=== PATIENT | female | born 1945 | race Caucasian/White ===

== ENCOUNTER → 2018-03-18 10:53 | Outpatient (CLI) | payer MEDICARE, OTHER, SELFPAY ==
--- NOTE | 2018-03-18 | DI.MG.S_ITS ---
BILATERAL DIGITAL SCREENING MAMMOGRAM 3D/2D WITH CAD: 03/18/2018 CLINICAL: Routine screening. Comparison is made to exams dated: 02/28/2017 mammogram and 02/28/2016 mammogram - [facility]. There are scattered fibroglandular elements in both breasts. Current study was also evaluated with a Computer Aided Detection (CAD) system. There is an asymmetry in the left breast posterior depth medial region seen on the craniocaudal view only. No other significant masses, calcifications, or other findings are seen in either breast. IMPRESSION: INCOMPLETE: NEEDS ADDITIONAL IMAGING EVALUATION The asymmetry in the left breast is indeterminate. Additional views with possible ultrasound are recommended. This exam was interpreted at Station ID: [id number]. NOTE: For mammograms, a report in lay terms will be sent to the patient. Approximately 15% of breast malignancies will not be visualized mammographically. In the management of a palpable breast mass, a negative mammogram must not discourage biopsy of a clinically suspicious lesion. Electronically Signed By: Patricio aguilera/jen:03/20/2018 18:15:48 letter sent: Additional Imaging Needed ACR BI-RADS Category 0: Incomplete 3340F
== END ==
PROVIDERS: PCP Registered Nurse Women's Health Care, Ambulatory; Visit Provider Nurse Practitioner Family
DX: Z12.31 Encounter for screening mammogram for malignant neoplasm of breast (principal); R92.8 Other abnormal and inconclusive findings on diagnostic imaging of breast
CPT/HCPCS: 77063; 77067

== ENCOUNTER → 2018-03-28 09:51 | Outpatient (CLI) | payer MEDICARE, OTHER, SELFPAY ==
--- NOTE | 2018-03-28 | DI.MG.S_ITS ---
UNILATERAL LEFT DIGITAL DIAGNOSTIC MAMMOGRAM 3D/2D WITH ADDITIONAL VIEWS: 03/28/2018 CLINICAL: Additional evaluation requested from prior study. Comparison is made to exams dated: 03/18/2018 mammogram - [facility], 02/28/2017 mammogram, and 02/28/2016 mammogram - [facility]. There are scattered fibroglandular elements in the left breast. There is an asymmetry in the left breast posterior depth medial region seen on the craniocaudal view only. This is not seen in additional views. No other significant masses or calcifications are seen in the breast. IMPRESSION: INCOMPLETE: NEEDS ADDITIONAL IMAGING EVALUATION The asymmetry in the left breast seen only on screening view is indeterminate. An ultrasound is recommended. This exam was interpreted at Station ID: [id number]. NOTE: For mammograms, a report in lay terms will be sent to the patient. Approximately 15% of breast malignancies will not be visualized mammographically. In the management of a palpable breast mass, a negative mammogram must not discourage biopsy of a clinically suspicious lesion. Electronically Signed By: Archana Milner M.D. lk/:03/28/2018 10:41:57 letter sent: Additional Imaging Needed ACR BI-RADS Category 0: Incomplete 3340F
--- NOTE | 2018-03-28 | DI.US.S_ITS ---
ULTRASOUND OF LEFT BREAST: 03/28/2018 CLINICAL: Patient returns today to evaluate a density in the left breast. Comparison is made to exams dated: 03/28/2018 mammogram, 03/18/2018 mammogram - [facility], 02/28/2017 mammogram, and 02/28/2016 mammogram - [facility]. Ultrasound of the left breast was performed on the area of interest. Larson scale images of the real-time examination were reviewed. IMPRESSION: NEGATIVE There is no sonographic evidence of malignancy. There is no diagnostic mammographic or sonographic abnormality seen in the left breast to correspond with the mammography finding on the screening mammogram dated 12/17/17 in the inner aspect of the breast. This most likely represents a sternalis muscle, and is benign. A 1 year screening mammogram is recommended. This exam was interpreted at Station ID: [id number]. Electronically Signed By: Archana Milner M.D. lk/:03/28/2018 10:45:01 letter sent: Normal Exam Ultrasound BI-RADS: 1 Negative
== END ==
PROVIDERS: PCP Registered Nurse Women's Health Care, Ambulatory; Visit Provider Nurse Practitioner Family
DX: R92.8 Other abnormal and inconclusive findings on diagnostic imaging of breast (principal)
CPT/HCPCS: 76642; 77065; G0279

== ENCOUNTER → 2020-04-02 09:04 | Outpatient (CLI) | payer MEDICARE, OTHER, SELFPAY ==
--- NOTE | 2020-04-02 | DI.MG.S_ITS ---
BILATERAL DIGITAL SCREENING MAMMOGRAM 3D/2D WITH CAD: 04/02/2020 CLINICAL: Routine screening. Comparison is made to exams dated: 03/18/2018 mammogram, 03/28/2018 mammogram - [facility], 02/28/2017 mammogram, and 02/28/2016 mammogram - [facility]. There are scattered fibroglandular elements in both breasts. Current study was also evaluated with a Computer Aided Detection (CAD) system. No significant masses, calcifications, or other findings are seen in either breast. There has been no significant interval change. IMPRESSION: NEGATIVE There is no mammographic evidence of malignancy. A 1 year screening mammogram is recommended. This exam was interpreted at Station ID: [id number]. NOTE: For mammograms, a report in lay terms will be sent to the patient. Approximately 15% of breast malignancies will not be visualized mammographically. In the management of a palpable breast mass, a negative mammogram must not discourage biopsy of a clinically suspicious lesion. Electronically Signed By: Cabrera campbell/jen:04/04/2020 07:46:59 letter sent: Normal Exam ACR BI-RADS Category 1: Negative [id number]
== END ==
PROVIDERS: PCP Student in an Organized Health Care Education/Training Program; Referring Provider Student in an Organized Health Care Education/Training Program; Visit Provider Student in an Organized Health Care Education/Training Program
DX: Z12.31 Encounter for screening mammogram for malignant neoplasm of breast (principal)
CPT/HCPCS: 77063; 77067

== ENCOUNTER → 2021-03-21 11:40 | Outpatient (CLI) | payer MEDICARE, OTHER, SELFPAY ==
--- NOTE | 2021-03-21 | DI.RAD.S_ITS ---
PROCEDURE: XR KNEE RT 3V INDICATIONS: pain in right knee TECHNIQUE: 3 views of the knee were acquired. COMPARISON: None. FINDINGS: Bones: No fractures or dislocations. No suspicious bony lesions. Scattered degenerative subchondral sclerosis and spurring. There is at least mild medial joint space narrowing. Soft tissues: Chondrocalcinosis. Trace joint effusion. IMPRESSION: Mild osteoarthritis. Trace joint effusion. Chondrocalcinosis If the patient's pain or other symptoms persist, consider further evaluation with MRI Dictated by: Abhilash Torres M.D. on 03/21/2021 at 13:29 Approved by: Abhilash Torres M.D. on 03/21/2021 at 13:30
== END ==
PROVIDERS: PCP Student in an Organized Health Care Education/Training Program; Referring Provider Student in an Organized Health Care Education/Training Program; Visit Provider Student in an Organized Health Care Education/Training Program
DX: M25.561 Pain in right knee (principal); M17.11 Unilateral primary osteoarthritis, right knee; M11.261 Other chondrocalcinosis, right knee
CPT/HCPCS: 73562

== ENCOUNTER → 2022-03-12 13:57 | Outpatient (CLI) | payer MEDICARE, OTHER, SELFPAY ==
--- NOTE | 2022-03-12 | DI.MG.S_ITS ---
BILATERAL DIGITAL SCREENING MAMMOGRAM 3D/2D WITH CAD: 03/12/2022 CLINICAL: Routine screening. Comparison is made to exams dated: 04/02/2020 mammogram, 03/18/2018 mammogram - [facility], and 02/28/2017 mammogram - [facility]. There are scattered fibroglandular elements in both breasts. Current study was also evaluated with a Computer Aided Detection (CAD) system. No significant masses, calcifications, or other findings are seen in either breast. There has been no significant interval change. IMPRESSION: NEGATIVE There is no mammographic evidence of malignancy. A 1 year screening mammogram is recommended. Based on the Tyrer Cuzick model (a risk assessment model) the patient's lifetime risk is 2.3% and her 10 year risk is 0.0%. According to the ACR, ACS, and NCCN guidelines, an annual breast MRI exam along with mammogram is recommended if the patient's lifetime risk is 20% or greater. This exam was interpreted at Station ID: [id number]. NOTE: For mammograms, a report in lay terms will be sent to the patient. Approximately 15% of breast malignancies will not be visualized mammographically. In the management of a palpable breast mass, a negative mammogram must not discourage biopsy of a clinically suspicious lesion. Electronically Signed By: Chan garcia/jen:03/12/2022 14:51:35 letter sent: Normal Exam ACR BI-RADS Category 1: Negative 3341F
== END ==
PROVIDERS: PCP Family Medicine; Referring Provider Family Medicine; Visit Provider Student in an Organized Health Care Education/Training Program
DX: Z12.31 Encounter for screening mammogram for malignant neoplasm of breast (principal)
CPT/HCPCS: 77063; 77067

== ENCOUNTER → 2023-03-26 13:47 | Outpatient (CLI) | payer MEDICARE, OTHER, SELFPAY ==
--- NOTE | 2023-03-26 | DI.MG.S_ITS ---
BILATERAL DIGITAL SCREENING MAMMOGRAM 3D/2D WITH CAD: 03/26/2023 CLINICAL: Routine screening. Comparison is made to exams dated: 03/12/2022 mammogram, 04/02/2020 mammogram, and 03/18/2018 mammogram - [facility]. Both breasts are heterogeneously dense, which may obscure small masses (category c / 51-75% glandular tissue). Current study was also evaluated with a Computer Aided Detection (CAD) system. No significant masses, calcifications, or other findings are seen in either breast. There has been no significant interval change. IMPRESSION: NEGATIVE There is no mammographic evidence of malignancy. A 1 year screening mammogram is recommended. Based on the Tyrer Cuzick model (a risk assessment model) the patient's lifetime risk is 3.1% and her 10 year risk is 0.0%. According to the ACR, ACS, and NCCN guidelines, an annual breast MRI exam along with mammogram is recommended if the patient's lifetime risk is 20% or greater. This exam was interpreted at Station ID: [id number]. NOTE: For mammograms, a report in lay terms will be sent to the patient. Approximately 15% of breast malignancies will not be visualized mammographically. In the management of a palpable breast mass, a negative mammogram must not discourage biopsy of a clinically suspicious lesion. Electronically Signed By: Archana zaman/jen:03/26/2023 15:01:10 letter sent: Normal Exam ACR BI-RADS Category 1: Negative [id number]
== END ==
PROVIDERS: PCP Family Medicine; Referring Provider Registered Nurse; Visit Provider Registered Nurse
DX: Z12.31 Encounter for screening mammogram for malignant neoplasm of breast (principal)
CPT/HCPCS: 77063; 77067

== ENCOUNTER → 2023-06-29 10:02 | Outpatient (CLI) | payer MEDICARE, OTHER, SELFPAY | PROVIDERS: PCP Registered Nurse; Visit Provider Registered Nurse | DX: R30.0 Dysuria (principal) | CPT/HCPCS: 87086 ==

== ENCOUNTER 2023-07-03 17:33 | Emergency (ER) | payer MEDICARE, OTHER, SELFPAY ==
[2023-07-03 17:51] VITALS: BP 222/98; PULSE 86; RESP 18; TEMP 36.7; O2SAT 98; BMI 21.5
--- NOTE | 2023-07-03 18:01 | DI.RAD.S_ITS ---
PROCEDURE: XR CHEST 1V INDICATIONS: chest pain TECHNIQUE: One view of the chest was acquired. COMPARISON: None. FINDINGS: Surgical changes and devices: None. Lungs and pleura: Lungs are clear, yet hyperexpanded. No pleural effusions or pneumothorax. Mediastinum: Mediastinal contours appear normal. Heart size is normal. Bones and chest wall: No suspicious bony lesions. S-shaped scoliotic curvature is seen. Age-appropriate bony degenerative changes are seen. Overlying soft tissues appear unremarkable. IMPRESSION: Hyperexpanded lungs, without an acute cardiopulmonary process identified. S shaped scoliosis noted. Dictated by: Quinn Garner M.D. on 07/03/2023 at 18:09 Approved by: Quinn Garner M.D. on 07/03/2023 at 18:09
[2023-07-03 18:35] VITALS: BP 204/112; PULSE 77; RESP 16; O2SAT 99
[2023-07-03 18:40] LABS: Add Manual Diff / Slide Review NO; Basophils Absolute Auto 100 /uL (0-100); Basophils Percent Auto 0.7 % (0-2); Eosinophils Absolute Auto 100 /uL (0-450); Eosinophils Percent Auto 1.6 % (2-4); Hematocrit 39.3 % (36-46); Hemoglobin 13.5 g/dL (12.0-16.0); Lymphocytes Absolute Auto 1600 /uL (1100-4500); Lymphocytes Percent Auto 20.1 % (25-40); Mean Corpuscular HGB Conc 34.3 % (30-36); Mean Corpuscular Hemoglobin 32.2 PG (26-34); Mean Corpuscular Volume 93.8 fL (80-100); Monocytes Absolute Auto 600 /uL (0-900); Monocytes Percent Auto 7.3 % (3-14); Neutrophils Absolute Auto 5700 /uL (1500-7000); Neutrophils Percent Auto 70.3 % (50-75); Platelet Count 222 X10^3/uL (150-400); Red Blood Cell Count 4.19 X10^6/uL (4.0-5.2); Red Cell Distribution Width 12.7 % (11.6-14.8); White Blood Cell Count 8.1 X10^3/uL (4.5-11.0)
[2023-07-03 18:53] LABS: INR 1.1 (0.9-1.3); Prothrombin Time 12.9 SECONDS (10.1-12.7)
[2023-07-03 18:56] LABS: PTT Partial Thromboplastin Tim 30 SECONDS (26-36)
[2023-07-03 18:59] LABS: Alanine Aminotransferase 16 IU/L (<35); Albumin 4.4 g/dL (3.5-5.0); Albumin Globulin Ratio 1.6 (1.0-2.8); Alkaline Phosphatase 84 U/L (38-126); Aspartate Aminotransferase 42 IU/L (14-36); BUN Creatinine Ratio 18.5 (6-22); Bilirubin Total 0.4 mg/dL (0.2-1.3); Blood Urea Nitrogen 12 mg/dL (7-17); Calcium 9.8 mg/dL (8.4-10.2); Carbon Dioxide 29 mmol/L (22-32); Chloride 101 mmol/L (98-107); Creatine Kinase 141 U/L (30-135); Estimated Glomerular Filt Rate > 60 mL/min (>60); Globulin 2.8 g/dL (1.7-4.1); Glucose 129 mg/dL (80-110); HEMOLYSIS 23 (0-50); Lipase 106 U/L (23-300); Magnesium 2.2 mg/dL (1.6-2.3); Potassium 3.9 mmol/L (3.4-5.1); Sodium 137 mmol/L (137-145); Total Protein 7.2 g/dL (6.3-8.2)
[2023-07-03 19:10] LABS: Troponin I < 0.012 ng/mL (0.01-0.034)
[2023-07-03 19:57] VITALS: BP 173/91; PULSE 92; O2SAT 98
[2023-07-03 20:00] VITALS: BP 203/98; PULSE 88; RESP 18; O2SAT 99
--- NOTE | 2023-07-03 20:09 | ED_ITS ---
HPI - General Adult General Chief complaint: Hypertension Stated complaint: High BP Time Seen by Provider: 07/03/23 18:29 Source: patient and family Mode of arrival: Ambulatory History of Present Illness HPI narrative: 78-year-old female with history of hypothyroid presents with a chief complaint of a few weeks of just not feeling well. Rather nonspecific but with a dry mouth feeling a bit thirsty and peeing a lot. She was started on hydroxyzine and buspirone yesterday and started having hypertension soon thereafter.. She was seen recently for urinary complaints but found to have no infectious process. She denies any headache or blurred vision, no chest pain or shortness of breath. No abdominal pain. She states that about a month ago she started having trouble sleeping which has persisted. She denies any change in medications any significant caffeine, alcohol or nicotine intake. She states that prior to that she had been very active and had a regular exercise routine but because she was waking up tired she stopped exercising. Otherwise she denies any significant change in her life in no dietary change. She noticed elevations in her blood pressure over the past day or so Related Data Home Medications Medication Instructions Recorded Confirmed cetirizine 10 mg capsule (Zyrtec) 10 mg PO DAILY PRN 06/29/23 06/29/23 estradiol 0.01% (0.1 mg/gram) vaginal 06/29/23 06/29/23 vaginal cream levothyroxine 25 mcg tablet 25 mcg PO DAILY 06/29/23 06/29/23 trazodone 50 mg tablet 25 mg PO ONCE PM PRN 06/29/23 06/29/23 Allergies Allergy/AdvReac Type Severity Reaction Status Date / Time No Known Drug Allergies Allergy Unverified 06/29/23 10:06 Review of Systems Review of Systems Narrative: GENERAL: Denies chills, fatigue, malaise, fever, sweats. HEENT: Denies sinus pain, ear pain, sore throat, difficulty swallowing, dizziness. RESPIRATORY: Denies dyspnea, cough, wheezing, hemoptysis, sputum. CARDIOVASCULAR: Denies chest pain, palpitations, orthopnea, edema, GASTROINTESTINAL: Denies nausea, vomiting, abdominal pain, diarrhea, constipation, melena. : Denies dysuria, frequency, incontinence, hematuria, urinary retention. MUSCULOSKELETAL: denies weakness, joint pain, or bony pain SKIN: Denies rash, skin lesions, or other NEUROLOGIC: Denies weakness, headache, numbness, change in speech, confusion, seizures, incoordination. PSYCHIATRIC: No concerning psychosocial issues. 12 point review of systems is negative except for those stated above Patient History Social History Smoking Status: Never smoker Smoking Status: Never smoker alcohol intake frequency: holidays/special occasions only Substance Use Type: marijuana Exam Narrative Exam Narrative: GENERAL: [78] year old patient appears stated age. Well-developed patient, in mild distress. HEAD: Atraumatic. Normocephalic. EYES: Pupils equal round and reactive. Extraocular motions intact. No scleral icterus. No injection or drainage. ENT: Nose without bleeding, purulent drainage. Throat without erythema, tonsillar hypertrophy or exudate. Airway patent. NECK: Trachea midline. Non tender CARDIOVASCULAR: Regular rate and rhythm without murmurs, gallops, or rubs. RESPIRATORY: Clear to auscultation. Breath sounds equal bilaterally. No wheezes, rales, or rhonchi. GASTROINTESTINAL: Abdomen soft, non-tender, nondistended. EXTREMITIES: No edema or joint tenderness. BACK: Nontender without deformity or crepitance. No flank tenderness. NEURO: AOx3. SKIN: No rash or erythema of visible areas Initial Vital Signs Initial Vital Signs: Vital Signs Temperature 98.1 F 07/03/23 17:51 Pulse Rate 86 07/03/23 17:51 Respiratory Rate 18 07/03/23 17:51 Blood Pressure 222/98 H 07/03/23 17:51 Pulse Oximetry 98 07/03/23 17:51 Oxygen Delivery Method Room Air 07/03/23 17:51 Course Orders Ordered: ED Orders 07/03/23 18:01 XR chest 1V Stat 07/03/23 18:16 EKG-12 Lead Stat 07/03/23 18:22 Complete Blood Count AUTO DIFF Stat Comprehensive Metabolic Panel Stat Lipase Stat Magnesium Stat PTT Partial Thromboplastin Saji Stat Prothrombin Time INR Stat Troponin & CK Cardiac Panel Stat Discontinued Medications Aspirin (Aspirin 81 Mg Chew Tab) 324 mg PO NOW ONE Stop: 07/03/23 18:02 Last Admin: 07/03/23 18:23 Dose: Not Given Documented By: SHANIA Vital Signs Vital signs: Vital Signs - 8 hr 07/03/23 17:51 07/03/23 18:35 07/03/23 19:57 Temperature 98.1 F Pulse Rate 86 77 92 H Respiratory Rate 18 16 Blood Pressure 222/98 H 204/112 H Pulse Oximetry 98 99 98 Oxygen Delivery Method Room Air Room Air 07/03/23 19:57 07/03/23 20:00 07/03/23 20:00 Temperature Pulse Rate 88 Respiratory Rate 18 Blood Pressure 173/91 H 203/98 H Pulse Oximetry 99 Oxygen Delivery Method 07/03/23 20:30 07/03/23 20:30 Temperature Pulse Rate 82 Respiratory Rate 16 Blood Pressure 192/91 H Pulse Oximetry 98 Oxygen Delivery Method Room Air Medical Decision Making Lab Data 07/03/23 18:22 07/03/23 18:22 Labs: Lab Results 07/03/23 Range/Units 18:22 WBC 8.1 (4.5-11.0) X10^3/uL RBC 4.19 (4.0-5.2) X10^6/uL Hgb 13.5 (12.0-16.0) g/dL Hct 39.3 (36-46) % MCV 93.8 (80-100) fL MCH 32.2 (26-34) PG MCHC 34.3 (30-36) % RDW 12.7 (11.6-14.8) % Plt Count 222 (150-400) X10^3/uL Neut % (Auto) 70.3 (50-75) % Lymph % (Auto) 20.1 L (25-40) % Sawyer % (Auto) 7.3 (3-14) % Eos % (Auto) 1.6 L (2-4) % Baso % (Auto) 0.7 (0-2) % Neut # (Auto) 5700 (2902-4580) /uL Lymph # (Auto) 1600 (8732-0961) /uL Sawyer # (Auto) 600 (0-900) /uL Eos # (Auto) 100 (0-450) /uL Baso # (Auto) 100 (0-100) /uL PT 12.9 H (10.1-12.7) SECONDS INR 1.1 (0.9-1.3) APTT 30 (26-36) SECONDS Sodium 137 (137-145) mmol/L Potassium 3.9 (3.4-5.1) mmol/L Chloride 101 (98-107) mmol/L Carbon Dioxide 29 (22-32) mmol/L BUN 12 (7-17) mg/dL Creatinine 0.65 (0.52-1.04) mg/dL Estimated GFR > 60 (>60) mL/min BUN/Creatinine Ratio 18.5 (6-22) Glucose 129 H (80-110) mg/dL Calcium 9.8 (8.4-10.2) mg/dL Magnesium 2.2 (1.6-2.3) mg/dL Total Bilirubin 0.4 (0.2-1.3) mg/dL AST 42 H (14-36) IU/L ALT 16 (<35) IU/L Alkaline Phosphatase 84 (38-126) U/L Total Creatine Kinase 141 H (30-135) U/L Troponin I < 0.012 (0.01-0.034) ng/mL Total Protein 7.2 (6.3-8.2) g/dL Albumin 4.4 (3.5-5.0) g/dL Globulin 2.8 (1.7-4.1) g/dL Albumin/Globulin Ratio 1.6 (1.0-2.8) Lipase 106 (23-300) U/L Urine Dip Bedside Urine Glucose Negative Bedside Urine Bilirubin - Negative Bedside Urine Ketone - Negative Urine Specific [place] 1.010 Bedside Urine Occult Blood - Negative Bedside Urine pH 6.0 Bedside Urine Protein - Negative Bedside Urine Urobilinogen - Negative Bedside Urine Nitrite - Negative Bedside Urine Leukocytes - Negative Esterase Point of care testing: Urine Dip Bedside Urine Glucose Negative Bedside Urine Bilirubin - Negative Bedside Urine Ketone - Negative Urine Specific [place] 1.010 Bedside Urine Occult Blood - Negative Bedside Urine pH 6.0 Bedside Urine Protein - Negative Bedside Urine Urobilinogen - Negative Bedside Urine Nitrite - Negative Bedside Urine Leukocytes - Negative Esterase [facility] Narrative Medical decision making narrative: [78] year old patient presents with high blood pressure since yesterday in the absence of any specific symptoms Multiple etiologies for patient's symptoms considered including, but not limited to: [Medication reaction versus other] Prior Charts reviewed in our EMR Primary Historian: patient Labs reviewed and interpreted by myself: No significant abnormalities requiring a specific or immediate intervention Imaging reviewed: No acute process Patient's history and physical exam are reassuring. She is having no symptoms thought to be attributed to her high blood pressure. She is not had elevated blood pressure until yesterday and the temporal relationship between new medications and this elevation in blood pressure could not be ignored. We discussed a few options and certainly sure the opinion that given her lack of symptoms there is no indication for immediate intervention. We talked about keeping her on her new medications while considering the addition of an antihypertensive but both felt that it was most appropriate for her to stop the new medications that he she had started to see what happens with her blood pressure and follow-up closely with her doctor: Patient's symptoms improved over duration of stay with above-stated therapies. Findings and discharge diagnosis discussed with patient/family followed by verbalization of understanding Return precautions discussed with patient/family whom verbalize understanding of diagnosis and plan Discharge Plan Departure Patient Disposition: Home Clinical Impression: Hypertension, Insomnia Instructions: DI for High Blood Pressure Activity Restrictions/Additional Instructions: *You have been diagnosed with [asymptomatic hypertension, as we discuss this seems to be closely related to the administration of new medications. Thankfully your history and physical exam as well as lab work are very reassuring] *What to do: * it would seem reasonable to stop taking the recently prescribed medications as they seemed to have caused a spike in your blood pressure. Please continue to take your regular medications as directed. [ ] New medication prescriptions sent to your pharmacy: [ ] [ ] New medication written as a paper prescription [ ] No new medications given *Please follow up with your primary care provider in 2-3 days, call for an appointment. Let them know you were seen in the Emergency Department and that we ask that you be seen in follow up. We will electronically transmit a record of today's note if your PCP is in our system *If you do not have a primary care provider please contact the [facility] Resource line at [phone]. They will ask some questions about your medical history and help get you set up with a doctor in the community. *Return to Emergency Department if you should have any new, worsening or concerning symptoms, such as [fever greater than 101 F, shaking chills, worsening pain, persistent vomiting or other bothersome symptoms] Prescriptions: No Action estradiol 0.01 % (0.1 mg/gram) cream vaginal levothyroxine 25 mcg tablet 25 mcg PO DAILY trazodone 50 mg tablet 25 mg PO ONCE PM PRN Zyrtec 10 mg capsule 10 mg PO DAILY PRN Referrals: Meslin,Radha S, GYROSCOPE TECHNICIAN [Primary Care Provider] - Stand Alone Forms: Patient Portal/API
[2023-07-03 20:30] VITALS: BP 192/91; PULSE 82; RESP 16; O2SAT 98
== END 2023-07-03 20:40 | disposition home or self-care (01) ==
PROVIDERS: Emergency Provider Emergency Medicine; PCP Registered Nurse
DX: I10 Essential (primary) hypertension (principal); G47.00 Insomnia, unspecified
CPT/HCPCS: 36415; 71045; 80053; 81003; 82550; 83690; 83735; 84484; 85025; 85610; 85730; 93005; 93010; 99284

== ENCOUNTER → 2023-11-29 | Outpatient (CLI) | payer MEDICARE, OTHER, SELFPAY ==
--- NOTE | 2023-11-29 12:21 | DI.DEXA.S_ITS ---
Bone Density Report Name: LO RANDALL Age: 78 Sex: Female Ethnicity: White Date of : 1945 Indication: postmenopausal osteoporosis; monitoring treatment; Referring Provider: BEE PINO Study: Bone densitometry was performed. Exam Date: November 29, 2023 Accession number: [id number] Bone Density: Region BMD T-score Z-score Classification AP Spine(L1-L4) 0.916 -1.2 1.5 Osteopenia Femoral Neck (Left) 0.528 -2.9 -0.6 Osteoporosis Total Hip (Left) 0.608 -2.7 -0.6 Osteoporosis Femoral Neck (Right) 0.471 -3.4 -1.1 Osteoporosis Total Hip (Right) 0.590 -2.9 -0.8 Osteoporosis Total Hip Mean 0.599 -2.8 -0.7 Osteoporosis World Health Organization criteria for BMD impression classify patients as: Normal (T-score at or above -1.0), Osteopenia (T-score between -1.0 and -2.5), or Osteoporosis (T-score at or below -2.5). 10-year Fracture Risk: FRAX not reported because: Some T-score for Spine Total or Hip Total or Femoral Neck at or below -2.5 Treated for osteoporosis Previous Exams: -- Region Exam Age BMD T-score BMD Change BMD Change Date g/cm2 vs Baseline vs Previous -- AP Spine (L1-L4) 11/29/2023 78 0.916 -1.2 0.071 (8.4%)# 0.019 (2.2%)# 11/26/2014 69 0.896 -1.4 0.052 (6.1%)* 0.041 (4.8%)* 11/19/2012 67 0.856 -1.7 0.011 (1.3%) 0.011 (1.3%) 10/18/2010 65 0.844 -1.8 Total Hip(Left) 11/29/2023 78 0.608 -2.7 -0.002 (-0.3%)# -0.018 (-2.9%)# 11/26/2014 69 0.626 -2.6 0.016 (2.6%) -0.001 (-0.1%) 11/19/2012 67 0.627 -2.6 0.017 (2.8%) 0.017 (2.8%) 10/18/2010 65 0.610 -2.7 Total Hip(Right) 11/29/2023 78 0.590 -2.9 -0.023 (-3.7%)# -0.005 (-0.8%)# 11/26/2014 69 0.595 -2.8 -0.018 (-2.9%) 0.000 (0.0%) 11/19/2012 67 0.595 -2.8 -0.018 (-2.9%) -0.018 (-2.9%) 10/18/2010 65 0.613 -2.7 -- *Denotes significance at 95% confidence level, LSC for AP Spine = 0.022 g/cm2, LSC for Total Hip = 0.027 g/cm2 # Denotes dissimilar scan types or analysis methods Impression: The patient has osteoporosis, based on the Right Femoral Neck T-score. No significant bone loss was observed. Discussion: PATIENT UNDER TREATMENT WITH NO SIGNIFICANT BMD LOSS SINCE LAST EXAM. In an untreated patient, BMD typically declines with age. A lack of decline or gain is usually a sign that treatment is efficacious and fracture risk is reduced. It is important to ask patients whether they are taking their medications and to encourage continued and appropriate compliance with their osteoporosis therapies to reduce fracture risk. It is also important to review their risk factors and encourage appropriate calcium and vitamin D intakes, exercise, fall prevention and other lifestyle measures. Follow-Up: Consider a repeat BMD and Vertebral Fracture Assessment (VFA) exam in 2 years or sooner if medically necessary, to reassess this patient's status. Reported by: KISHA TORRES M.D. on 11/29/2023 12:39:00 PM.
== END ==
LOC: RAD 12:07
PROVIDERS: PCP Registered Nurse; Referring Provider Registered Nurse; Visit Provider Registered Nurse
DX: Z78.0 Asymptomatic menopausal state (principal); M81.0 Age-related osteoporosis without current pathological fracture
CPT/HCPCS: 77080